=== PATIENT | male | born 1995 | race Caucasian/White ===

== ENCOUNTER 2018-06-08 22:18 | Emergency (ER) | payer SELFPAY ==
[2018-06-08] MEDS: LIDOCAINE 1% (MPF) 5 ML VIAL INJ (22:54)
[2018-06-08] MEDS: DIPHTH/TET/ACEL PERTUSS (ADULT) 0.5 ML VIAL IM* (22:54)
[2018-06-08] MEDS: SILVER NITRATE SWAB TOP (22:54)
== END 2018-06-08 23:45 | disposition home or self-care (01) ==
LOC: FTE 22:18
DX: S61.217A Laceration without foreign body of left little finger without damage to nail, initial encounter (principal); W26.0XXA Contact with knife, initial encounter; Y92.9 Unspecified place or not applicable; Z23 Encounter for immunization
CPT/HCPCS: 12001; 90471; 90715; 99283-25

== ENCOUNTER 2018-06-16 13:19 | Emergency (ER) | payer SELFPAY ==
[2018-06-16] MEDS: ACETAMINOPHEN 325 MG TAB PO (14:27)
== END 2018-06-16 15:56 | disposition home or self-care (01) ==
LOC: FTE 13:19
DX: Z48.01 Encounter for change or removal of surgical wound dressing (principal)
CPT/HCPCS: 73140; 99281